=== PATIENT | female | born 1950 | race Caucasian/White ===

== ENCOUNTER 2017-02-01 16:14 | Emergency (ER) | payer MEDICARE, OTHER ==
[2017-02-01 17:00] LABS: HEMOGLOBIN 15.9 gm/dl (12.3-15.3); RED BLOOD COUNT 4.98 M/UL (4.00-5.10); WHITE BLOOD COUNT 7.6 K/UL (4.5-11.0)
[2017-02-01 17:25] LABS: BUN/CREATININE RATIO 19 (0-10)
== END 2017-02-01 18:41 | disposition home or self-care (01) ==
LOC: ER1 16:14
PROVIDERS: Emergency Medicine
DX: G51.0 Bell's palsy (principal); E11.9 Type 2 diabetes mellitus without complications; I10 Essential (primary) hypertension; E03.9 Hypothyroidism, unspecified; M10.9 Gout, unspecified
CPT/HCPCS: 36415; 70450; 80048; 84484; 85025; 99284

== ENCOUNTER → 2021-03-13 | Outpatient (CLI) | payer MEDICARE, OTHER ==
[~2021-03-13] MED LIST: ASPIRIN 325MG325 MG PO; CELEBREX200 MG PO; COQ1050 MG PO; GLUCOPHAGE 500500 MG PO; HYDROCHLOROTHIA25 MG PO; HYDROCODON-ACE1 EAC4 PO; LEVAQUIN500 MG PO; LEVOFLOXACIN500 MG PO; LOPRESSOR 25 MG25 MG PO; MICARDIS80 MG PO; NITROSTAT0.3 MG SL; ST. JOSEPH ASPI81 MG PO; SYNTHROID125 MCG PO; ZETIA10 MG PO; ZYLOPRIM 300 M300 MG PO
[2021-03-13 11:36] LABS: HEMOGLOBIN 15.2 gm/dl (12.3-15.3); RED BLOOD COUNT 4.77 M/UL (4.00-5.10); WHITE BLOOD COUNT 4.9 K/UL (4.5-11.0)
[2021-03-13 11:56] LABS: BUN/CREATININE RATIO 19 (0-10)
== END ==
LOC: LAB 09:36
PROVIDERS: Internal Medicine Cardiovascular Disease
DX: R55 Syncope and collapse (principal); I10 Essential (primary) hypertension; I47.2 Ventricular tachycardia; I25.10 Atherosclerotic heart disease of native coronary artery without angina pectoris; Z20.822 Contact with and (suspected) exposure to COVID-19
CPT/HCPCS: 36415; 71046; 80048; 85025; U0003

== ENCOUNTER 2021-03-17 10:03 | Outpatient (CLI) | payer MEDICARE, OTHER ==
[~2021-03-17] VITALS: Ht 167.6 cm; Wt 93.0 kg
[~2021-03-17 10:03] MED LIST changes: -HYDROCODON-ACE1 EAC4 PO; -LEVOFLOXACIN500 MG PO; -LOPRESSOR 25 MG25 MG PO; -ST. JOSEPH ASPI81 MG PO
[2021-03-17] MEDS ORDERED: HYDROCODON-ACE1 EAC4 PO ×2 (15:00→16:21)
[2021-03-17] MEDS ORDERED: ST. JOSEPH ASPI81 MG PO (15:00)
[2021-03-17] MEDS ORDERED: LEVOFLOXACIN500 MG PO (15:00)
[2021-03-17] MEDS ORDERED: LOPRESSOR 25 MG25 MG PO (16:19)
--- NOTE | 2021-03-17 23:00 | NUR ---
FOUND PT LAYING ON COUCH AFTER A TRIP TO THE BATHROOM. SON AT BEDSIDE. ASSESSED PT, WHO SAID SHE WAS DIZZY, WHICH IS NOT A COMMON OCCURANCE FOR HER. PT FELT BETTER LAYING DOWN, TOOK BLOOD PRESSURE TO FIND PT WAS HYPOTENSIVE. PT'S BLOOD PRESSURE IMPROVED SHE WAS LAYING, GOT WORSE WITH SITTING UP. NOTIFIED THE PHYSCIAN THAT THE PT WAS HAVING HYPOTENSION, DIZZINESS, HEART RATE PACED 60'S. MOVED PT TO BED WITH HELP AND FOLLOWED DR. RENDON'S ORDERS TO PLACE PT IN REVERSE TR[place]DE[place] AND BOLUS 1 LITER OF FLUID. PT'S BLOOD PRESSURE IMPROVED UPON POSITION AND WITH FLUIDS, WILL CONTINUE TO MONITOR.
[2021-03-18] MEDS ORDERED: HYDROCODON-ACE1 EAC4 PO ×2 (09:58→10:16)
[2021-03-18] MEDS ORDERED: LEVOFLOXACIN500 MG PO ×3 (09:59→10:19)
== END 2021-03-18 11:55 | disposition home or self-care (01) ==
LOC: CATH 10:03 → PROG CARE 15:33 → CATH 03-18 11:55
DX: I47.2 Ventricular tachycardia (principal); I25.10 Atherosclerotic heart disease of native coronary artery without angina pectoris; I25.2 Old myocardial infarction; I11.0 Hypertensive heart disease with heart failure; I50.1 Left ventricular failure, unspecified; I49.3 Ventricular premature depolarization; I44.7 Left bundle-branch block, unspecified; E78.2 Mixed hyperlipidemia; E11.9 Type 2 diabetes mellitus without complications; K74.60 Unspecified cirrhosis of liver; K21.9 Gastro-esophageal reflux disease without esophagitis; E03.9 Hypothyroidism, unspecified; Z95.5 Presence of coronary angioplasty implant and graft; Z79.82 Long term (current) use of aspirin; Z79.84 Long term (current) use of oral hypoglycemic drugs; Z79.899 Other long term (current) drug therapy
CPT/HCPCS: 33249; 71045; 82962; 93620; 93641; 99152; 99153; C1721; C1730; C1766; C1777; C1898; J1200; J1644; J2250; J2270; J3010; J3370; J7040; J7050; J7070; Q9965

== ENCOUNTER → 2021-06-04 | Outpatient (CLI) | payer MEDICARE, OTHER ==
[~2021-06-04] MED LIST changes: +HYDROCODON-ACE1 EAC4 PO; +LEVOFLOXACIN500 MG PO; +LOPRESSOR 25 MG25 MG PO; +ST. JOSEPH ASPI81 MG PO
== END ==
LOC: HEART 5 07:45
DX: I20.9 Angina pectoris, unspecified (principal); R94.31 Abnormal electrocardiogram [ECG] [EKG]; I51.9 Heart disease, unspecified
CPT/HCPCS: 78452; A9502; J2785

== ENCOUNTER → 2021-09-30 | Outpatient (CLI) | payer MEDICARE, OTHER ==
[~2021-09-30] MED LIST changes: +ISOSORBIDE MONO30 MG PO
[2021-09-30 11:10] LABS: HEMOGLOBIN 15.2 gm/dl (12.3-15.3); RED BLOOD COUNT 4.76 M/UL (4.00-5.10); WHITE BLOOD COUNT 5.9 K/UL (4.5-11.0)
[2021-09-30 11:55] LABS: BUN/CREATININE RATIO 25 (0-10)
== END ==
LOC: LAB 08:29
PROVIDERS: Internal Medicine Cardiovascular Disease
DX: I20.9 Angina pectoris, unspecified (principal); R94.39 Abnormal result of other cardiovascular function study; I25.10 Atherosclerotic heart disease of native coronary artery without angina pectoris
CPT/HCPCS: 36415; 71046; 80048; 85025; U0003